=== PATIENT | female | born 1955 | race African-American/Black ===

== ENCOUNTER 2017-01-09 21:28 | Inpatient (IN) | payer OTHER ==
--- NOTE | ~2017-01-09 | HP ---
History And Physical [id number] [place]. [address] NAME: GALLITO LI : 59 STATUS : ADM IN [facility]#: [id number] AGE: 61 ADM/REG DATE : 01/10/17 MR#: [id number] REPORT SERV DATE: 01/10/17 DICTATED BY: DORI RUSS DATE: 01/10/17 REPORT STATUS : Draft TRANSCRIBED BY: MODL DATE: 01/10/17 DATE OF ADMISSION: 01/10/2017 TIME: 0200 hours. LOCATION: Seen in ER bed 11. HISTORY OF PRESENT ILLNESS: Ms. Li is a 61-year-old -[place] female with a history of hypertension, who says that she came in because of a headache and elevated blood pressure. She reports on 12/15/2016, she saw her physician, who gave her an albuterol-type inhaler and since that time, her blood pressure has gotten out of control. Normally, she does take antihypertensive medications and has done so since 1999. Tonight, she required Cardene for control of hypertension when her usual medications did not sustain it. She had no significant chest pain with this. She did have a mild headache. She noted no epistaxis and no hematuria. Her blood pressure had not been this high ever previously. She had a nuclear cardiac stress test last year, which she reports as normal. PAST MEDICAL HISTORY: Usual childhood diseases; status post cholecystectomy; history of Graves' disease, for which she has been treated for several years, she is on methimazole; history of kidney stones, she now has one on the right, a large one had to be surgically removed from the left several years ago. ALLERGIES: SULFUR. MEDICATIONS: Her medications are numerous and include 81 mg chewable aspirin, Wellbutrin XL 300 mg daily, Catapres 0.1 mg 3 times a day, diazepam 5 mg p.o. daily, Neurontin 300 mg p.o. three times a day, Tapazole 5 mg p.o. daily, Lopressor 100 mg twice a day p.o., Remeron 30 mg p.o. at bedtime, Protonix 40, simvastatin 40, and Zanaflex 4 mg p.o. daily. REVIEW OF SYSTEMS: GASTROINTESTINAL: Inflammatory bowel. GENITOURINARY: Negative. NEUROLOGIC: Negative. ENDOCRINE: Positive for Graves' disease. MUSCULOSKELETAL: Negative. HEMATOLOGY/ONCOLOGY: Negative. All other systems reviewed and negative. FAMILY HISTORY: Noncontributory. SOCIAL HISTORY: Nonsmoker. Nondrinker. PHYSICAL EXAMINATION: VITAL SIGNS: Blood pressure when she came in was 213/120, pulse was 90, saturation was 96%. GENERAL: The patient is awake, alert, oriented, in no acute distress at this time. History And Physical [address] [address] NAME: GALLITO LI : 59 STATUS : ADM IN PAT#: [id number] AGE: 61 ADM/REG DATE : 01/10/17 MR#: [id number] REPORT SERV DATE: 01/10/17 DICTATED BY: DORI RUSS DATE: 01/10/17 REPORT STATUS : Draft TRANSCRIBED BY: FANY DATE: 01/10/17 HEENT: Head is normocephalic. Sclerae and conjunctivae are clear. Of note, she has glaucoma. NECK: Supple. Good upstroke. No bruits. CHEST: Clear to auscultation and percussion. No wheezing or rhonchi. CARDIAC: S1 and S2, with S4. No murmurs or gallops. ABDOMEN: Obese, nontender. No masses or organomegaly. EXTREMITIES: No clubbing or cyanosis. Pulses palpable. Slight edema. NEUROLOGIC: Cranial nerves 2 through 12 are intact. Deep tendon reflexes are normal. LABORATORY DATA: Chest x-ray is clear. Sodium 143, potassium 3.3, chloride 109, CO2 of 24, BUN 9, creatinine 0.79, glucose 110, calcium 9.1, magnesium 1.8. Troponin less than 0.02. T4 total 6.2, TSH 5.38 slightly elevated, T3 free 3.09. BNP 96.9. CBC: H and H is 14.5 and 42.8, white count 97891, platelets 320,000. CT of brain is negative. Urinalysis: She has 100 mg of protein and she has rbc's of 182, minimal white cells, a few hyaline casts. The EKG shows LVH, normal sinus rhythm. IMPRESSION: 1. Accelerated hypertension. 2. History of renal stones. 3. Hematuria and proteinuria. 4. History of renal stones. PLAN: We will continue Cardene and oral medications. We will ask Nephrology to see for possible glomerulonephritis. We will get renal artery ultrasounds, renal artery Dopplers, ultrasound of kidneys. She may need a 24-hour urine for catecholamines, VMA, 5-HIAA, and metanephrine. RP/MODL Dori Russ M.D. / [id number] CC: Naga Mercado M.D.
--- NOTE | ~2017-01-09 | CN ---
Consultation Report [facility] [address] [place]. [address] NAME: GALLITO LI : 59 STATUS : ADM IN PAT#: [id number] AGE: 61 ADM/REG DATE : 01/10/17 MR#: [id number] REPORT SERV DATE: 01/12/17 DICTATED BY: ALFREDO MAYES DATE: 01/10/17 REPORT STATUS : Draft TRANSCRIBED BY: MODL DATE: 01/10/17 NEPHROLOGY CONSULT NOTE DATE OF CONSULTATION: 01/10/2017 HISTORY OF PRESENT ILLNESS: Ms Li is a 61-year-old black female, admitted to the hospital for uncontrolled hypertension. She has been having some headaches, went to the emergency room, and was admitted for problems. I consulted mainly for proteinuria and hematuria, concern about possible glomerulonephritis. No history of kidney disease in the past except for nephrolithiasis. Has had stones extracted as well as passed several stones, and repeated x-rays in the past have shown kidney stones bilaterally. She has a longstanding history of hypertension, Graves disease, anxiety/panic attacks, and pancreatitis x2. ALLERGIES: SHE IS ALLERGIC TO SULFA. SOCIAL HISTORY: No alcohol. Stopped smoking many years ago. with one child. MEDICATIONS: Her medications at home were aspirin, Wellbutrin, Catapres, Valium, Neurontin, Tapazole, Lopressor, Remeron, Protonix, Zocor, and Zanaflex. She admits to not taking her clonidine very often sometimes once a day, sometimes forgets it, especially since her has been ill and been at [facility], as well as skipping other medications also. PHYSICAL EXAMINATION: VITAL SIGNS: Shows a blood pressure of 125/67, heart rate of 89, respirations 25, temperature 99.6. GENERAL: Alert and oriented x3. No acute distress. Very verbal and apologetic about not taking her blood pressure medications according as recommended by Dr. Walker. HEENT: Unremarkable. LUNGS: Clear. CARDIAC: Without murmurs, gallops, or rubs. ABDOMEN: Soft, benign. Bowel sounds present. No bruits. EXTREMITIES: No edema. NEUROLOGIC: Nonfocal neurological exam. SKIN: No skin rash or joint abnormalities. LYMPHATICS: No lymphadenopathy appreciated. LABORATORY DATA: Shows a white count of 13,000, hemoglobin 15, hematocrit 46, platelet count 293,000. Sodium 140, potassium 3.8, chloride 107, CO2 22 with a BUN 8 and creatinine 0.69. Urinalysis shows hematuria and proteinuria in a contaminated specimen. CT scan and ultrasounds in the past have shown normal size kidneys with kidney stones bilaterally consistently. Ultrasound today pending. ASSESSMENT: 1. Hypertension, malignant last p.m. but maybe clonidine withdrawal syndrome as she has Consultation Report [address] [place]. [address] NAME: GALLITO LI : 59 STATUS : ADM IN PAT#: [id number] AGE: 61 ADM/REG DATE : 01/10/17 MR#: [id number] REPORT SERV DATE: 01/12/17 DICTATED BY: ALFREDO MAYES DATE: 01/10/17 REPORT STATUS : Draft TRANSCRIBED BY: FANY DATE: 01/10/17 not been taking her clonidine regularly at all lately. She has been taking metoprolol only, concern about glomerulonephritis, certainly a possibility, this can cause hematuria, proteinuria, and acute exacerbation hypertension but will need to follow her for awhile and make sure, I will check serology. 2. Hematuria, suspect secondary to uncontrolled hypertension and nephrolithiasis. Serology pending. 3. Nephrolithiasis, chronic and recurrent. 4. New diagnosis of Graves disease, poorly controlled. Again, forgets to take her medications regularly. 5. Anxiety, depression, and panic attacks in the past, on treatment. 6. History of hyperlipidemia on statins. 7. History of nephrolithiasis, followed by Urology. PLAN: Serology ordered. We will follow in the office after discharge. Blood pressure is already much better controlled with oral agents. We would like to get her off clonidine if at all possible as it would prevent the clonidine withdrawal syndrome if she were to forget to take her medications. NAYLA/FANY Alfredo Mayes M.D. / [id number] CC: Naga Mercado M.D.
--- NOTE | ~2017-01-09 | PUL ---
[address] [place]. [address] NAME: GALLITO LI : 59 STATUS : ADM IN PAT#: [id number] AGE: 61 ADM/REG DATE : 01/10/17 MR#: [id number] REPORT SERV DATE: 01/14/17 DICTATED BY: NICHOLAS JEONG DATE: 01/14/17 REPORT STATUS : Draft TRANSCRIBED BY: MODL DATE: 01/14/17 PULMONARY FUNCTION TEST STUDY: Nocturnal oximetry study. DESCRIPTION: Nocturnal oximetry study performed on room air on 01/11/2017 starting at 11:14 p.m. and ending on 01/12/2017 at 05:17 a.m. Total recording time 6 hours, 3 minutes, and 20 seconds. Average heart rate 78 with a low of 72 and a high of 91. Average O2 saturation is 92.9% with a low of 69%. Time below 88% was 19 minutes and 16 seconds and oxygen desaturation index was 5.1. IMPRESSION: This is a good quality oximetry study on room air showing significant oxygen desaturation to a low of 69% and significant time below 88%, which would qualify her for oxygen. Rule out any secondary causes that may need to be treated. If sleep apnea is a concern, then outpatient sleep study can be done. NINA/FANY Nicholas Jeong DO / [id number] CC: MD Hipolito Moura M.D.
--- NOTE | ~2017-01-09 | DS ---
Discharge Summary [id number] [place]. [address] NAME: GALLITO LI : 59 STATUS : DIS IN PAT#: [id number] AGE: 61 ADM/REG DATE : 01/10/17 MR#: [id number] REPORT SERV DATE: 01/15/17 DICTATED BY: OLEG LOPEZ DATE: 01/14/17 REPORT STATUS : Draft TRANSCRIBED BY: MODL DATE: 01/14/17 ADMISSION DATE: 01/10/2017 DISCHARGE DATE: 01/14/2017 DISCHARGE DIAGNOSES: Hypertensive urgency, malignant, with hypokalemia; Graves disease, likely obstructive sleep apnea. PERTINENT LABORATORY DATA: Renin-aldosterone noted after discharge ratio 0.6, considered within normal limits. Direct renin was 12.7, aldosterone 7.9. Pulmonary nocturnal oximetry, desated to 69%. ANCA less than 0 to 120, myeloperoxidase antibody less than 0.02. Proteinase 3 antibody less than 0.2. Urine culture, negative metanephrines. Final report 5 HIAA still pending. Will need to be followed at discharge. Hepatitis profile and HIV negative. KRISTINA titer less than 1:40. Complement level C3 at 176, C4 at 25.4, mildly elevated C3. Hemoglobin A1c 6.0. Renal ultrasound, nonobstructing right nephrolithiasis. Small cyst, lower pole of left kidney. Otherwise, normal size, contour, and cortical thickness of both kidneys. Cortisol 15.9. BNP 96.9. DISCHARGE MEDICATIONS: Amlodipine 5 mg one tab p.o. daily, aspirin 81 mg one tab p.o. b.i.d., Wellbutrin 300 mg one tab p.o. daily, Valium 5 mg one tab p.o. b.i.d. scheduled home dose, docusate 100 mg one tab p.o. b.i.d., Neurontin 300 mg one tab p.o. q.8 hours, methimazole 5 mg one tab p.o. b.i.d., metoprolol 100 mg one tab p.o. b.i.d., Protonix 40 mg one tab p.o. daily, simvastatin 40 mg one tab p.o. daily, Remeron 30 mg one tab p.o. at bedtime home dose as needed for sleep, Zanaflex 4 mg one tab p.o. every eight hours for muscle spasms and tension p.r.n., clonidine 0.3 mg patch q.7 days, Percocet 5/325 #10 b.i.d. p.r.n. for kidney stone pain. HOSPITAL COURSE: Please see H and P for complete details. HISTORY OF PRESENT ILLNESS: Briefly, Ms. Li is a 61-year-old female, who comes in with headache and elevated blood pressures. The patient reports that she typically has high blood pressures; however, has not been taking care of herself very well, as her has been having extensive hospitalizations after MS flare and inpatient admission and subsequent rehab that required prolonged stay. The patient has been having difficulty with her blood pressure and was insisted to coming to the hospital by . The patient required initially Cardene drip, but it was able to be converted to p.o. and clonidine patch with very good blood pressure control. The patient was able to tolerate this and was monitored for various stages of orthostasis. Electrolytes were optimized. The patient was hypokalemic on admission with potassium 3.1. The patient was able to tolerate p.o. and after review, the patient does have slight nocturnal dyspnea and was recommended for outpatient sleep study at the time of discharge for further evaluation as possible additionally secondary component for hypertension. Additional workup including metanephrine workup is still pending at the time of discharge and will need to be followed up once available with PCP. All questions were answered with the patient and family at bedside. Discharge Summary [address] [address] NAME: GALLITO LI : 59 STATUS : DIS IN PAT#: [id number] AGE: 61 ADM/REG DATE : 01/10/17 MR#: [id number] REPORT SERV DATE: 01/15/17 DICTATED BY: OLEG LOPEZ DATE: 01/14/17 REPORT STATUS : Draft TRANSCRIBED BY: FANY DATE: 01/14/17 DDN/FANY Oleg Lopez MD / [id number] CC: MD Hipolito Moura M.D.
[2017-01-09 19:09] LABS: BASOPHILS 0.5 %; BASOPHILS ABSOLUTE 0.05 10/3/uL (0.0-0.16); EOSINOPHILS 1.5 %; EOSINOPHILS ABSOLUTE 0.15 10/3/uL (0.0-0.53); HEMATOCRIT 42.8 % (36.0-48.0); HEMOGLOBIN 14.5 g/dL (12.0-16.0); IMMATURE GRANULOCYTES 0.4 %; IMMATURE GRANULOCYTES ABSOLUTE 0.04 10/3/uL (0.0-0.11); LYMPHOCYTES 29.7 %; LYMPHOCYTES ABSOLUTE 2.96 10/3/uL (0.67-4.30); MEAN CORPUS HGB CONC 33.9 g/dL (32.0-36.0); MEAN CORPUSCULAR HEMOGLOB 32.6 pg (26.0-34.0); MEAN PLATELET VOLUME 9.2 fL (9.2-13.0); MONOCYTES 6.7 %; MONOCYTES ABSOLUTE 0.67 10/3/uL (0.21-1.20); NEUTROPHILS 61.2 %; PLATELET COUNT 320 10/3/uL (150-400); RBC DISTRIBUTION WIDTH 13.8 % (12.0-16.0); RED CELL COUNT 4.45 10/6/uL (4.0-5.6)
[2017-01-09 19:10] LABS: MANUAL DIFF NO %; MEAN CORPUSCULAR VOLUME 96.2 fL (80-100)
[2017-01-09 19:17] LABS: INTERNATIONAL NORMAL RATI 1.1 UNITS (-); PROTIME (NOT ORD) 14.1 SEC (12.0-14.5)
[2017-01-09 19:24] LABS: CALCIUM, SERUM 9.1 MG/DL (8.5-10.4); CHEST PAIN PROFILE TAT 0 Hrs 19 Mins; CHLORIDE, SERUM 109 MMOL/L (96-112); CO2 (CARBON DIOXIDE) 24 MMOL/L (24-34); CREATININE 0.79 MG/DL (0.55-1.02); GFR AFRICAN AMERICAN 95 ML/MIN (>=60); GFR NON AFRICAN AMERICAN 82 ML/MIN (>=60); GLUCOSE, SERUM 110 MG/DL (60-99); POTASSIUM, SERUM 3.3 MMOL/L (3.5-5.3); SODIUM, SERUM 143 MMOL/L (135-148); TROPONIN I <0.02 NG/ML (<0.05)
[2017-01-09 19:25] LABS: BUN (BLOOD UREA NITROGEN) 9 MG/DL (6-23)
[~2017-01-09 21:28] MED LIST: CAT1 PO; CIP5 PO; COREG3 PO; CYANO1000T PO; HALF81 PO; LOP100 PO; LOP50 PO; LOPID6 PO; LUMIGAN OPH; MACRO50B PO; METHIMAZOLE5 MG PO; MICROZIDE PO; NORV10 PO; PROTONIX PO; PROTONIXIV IV; T PO; V2 PO; ZANAFLEX 4 MG TA4 MG PO; ZOCOR40 PO; ZOL100 PO
[2017-01-10 00:39] LABS: ASCORBIC ACID (UR NOT ORDER) NEG (NEG); BILIRUBIN, URINE NEGATIVE (NEG); ER URINALYSIS TAT 0 Hrs 00 Mins; KETONE, URINE NEGATIVE (NEG); LEUKOCYTE ESTERASE(NOT OR TRACE (NEG); NITRITE (URINE) NEG (NEG); WBC (NOT ORDERED) (RFLEX) 4 (0-5)
[2017-01-10 00:47] LABS: T4 (THYROXINE) TOTAL 6.2 MCG/DL (4.5-12.0)
[2017-01-10] MEDS ORDERED: WELLXL300 PO (01:27)
[2017-01-10] MEDS ORDERED: V5 PO (01:28)
[2017-01-10] MEDS ORDERED: NEUR300 PO (01:28)
[2017-01-10] MEDS ORDERED: CAT1 PO ×2 (01:28→01:29)
[2017-01-10] MEDS ORDERED: TAPAZOLE5 MG PO (01:29)
[2017-01-10] MEDS ORDERED: LOP100 PO (01:30)
[2017-01-10] MEDS ORDERED: REMERON30 MG PO (01:30)
[2017-01-10] MEDS ORDERED: ZANAFLEX 4 MG TA4 MG PO (01:30)
[2017-01-10] MEDS ORDERED: ZOCOR40 PO (01:31)
[2017-01-10] MEDS ORDERED: PROTONIX PO (01:31)
[2017-01-10] MEDS ORDERED: ASAB PO (01:33)
[2017-01-10 04:21] LABS: BASOPHILS 0.4 %; BASOPHILS ABSOLUTE 0.05 10/3/uL (0.0-0.16); EOSINOPHILS 1.5 %; HEMATOCRIT 46.7 % (36.0-48.0); HEMOGLOBIN 15.7 g/dL (12.0-16.0); IMMATURE GRANULOCYTES 0.4 %; IMMATURE GRANULOCYTES ABSOLUTE 0.05 10/3/uL (0.0-0.11); LYMPHOCYTES 23.3 %; LYMPHOCYTES ABSOLUTE 3.11 10/3/uL (0.67-4.30); MEAN CORPUS HGB CONC 33.6 g/dL (32.0-36.0); MEAN CORPUSCULAR HEMOGLOB 32.8 pg (26.0-34.0); MEAN CORPUSCULAR VOLUME 97.5 fL (80-100); MEAN PLATELET VOLUME 9.9 fL (9.2-13.0); MONOCYTES 6.5 %; MONOCYTES ABSOLUTE 0.87 10/3/uL (0.21-1.20); NEUTROPHILS 67.9 %; NEUTROPHILS ABSOLUTE 9.08 10/3/uL (2.02-8.40); PLATELET COUNT 293 10/3/uL (150-400); RBC DISTRIBUTION WIDTH 14.1 % (12.0-16.0); RED CELL COUNT 4.79 10/6/uL (4.0-5.6); WHITE BLOOD CELLS 13.4 10/3/uL (4.5-10.5)
[2017-01-10 04:22] LABS: MANUAL DIFF NO %
[2017-01-10 04:39] LABS: BUN (BLOOD UREA NITROGEN) 8 MG/DL (6-23); CALCIUM, SERUM 9.5 MG/DL (8.5-10.4); CHLORIDE, SERUM 107 MMOL/L (96-112); CO2 (CARBON DIOXIDE) 22 MMOL/L (24-34); CREATININE 0.69 MG/DL (0.55-1.02); GFR AFRICAN AMERICAN 110 ML/MIN (>=60); GFR NON AFRICAN AMERICAN 95 ML/MIN (>=60); GLUCOSE, SERUM 109 MG/DL (60-99); PHOSPHORUS, SERUM 2.9 MG/DL (2.5-4.5); SODIUM, SERUM 140 MMOL/L (135-148)
[2017-01-10 04:40] LABS: POTASSIUM, SERUM 3.1 MMOL/L (3.5-5.3)
[2017-01-10 08:16] LABS: POTASSIUM, SERUM 3.8 MMOL/L (3.5-5.3)
[2017-01-10 09:33] LABS: FREE T4 0.96 NG/DL (0.76-1.46)
[2017-01-10 16:52] LABS: COMPLEMENT C4 25.4 MG/DL (16-47)
[2017-01-11 04:41] LABS: ALBUMIN 3.8 G/DL (3.5-5.0); ALKALINE PHOSPHATASE 113 U/L (45-117); CALCIUM, SERUM 8.9 MG/DL (8.5-10.4); CHLORIDE, SERUM 111 MMOL/L (96-112); CO2 (CARBON DIOXIDE) 25 MMOL/L (24-34); CREATININE 0.89 MG/DL (0.55-1.02); GFR AFRICAN AMERICAN 82 ML/MIN (>=60); GFR NON AFRICAN AMERICAN 71 ML/MIN (>=60); GLUCOSE, SERUM 121 MG/DL (60-99); PHOSPHORUS, SERUM 3.7 MG/DL (2.5-4.5); POTASSIUM, SERUM 3.5 MMOL/L (3.5-5.3); SGPT(ALT) 23 U/L (5-65); SODIUM, SERUM 146 MMOL/L (135-148); TOTAL BILIRUBIN 0.4 MG/DL (0-1.2); TOTAL PROTEIN 7.9 G/DL (6.0-8.5)
[2017-01-11 04:43] LABS: A/G RATIO 0.9 (0.7-1.9); BUN (BLOOD UREA NITROGEN) 13 MG/DL (6-23); GLOBULIN 4.1 G/DL (2.5-4.1); SGOT(AST) 22 U/L (5-40)
[2017-01-11 12:46] LABS: ASCORBIC ACID (UR NOT ORDER) NEG (NEG); BILIRUBIN, URINE NEGATIVE (NEG); KETONE, URINE NEGATIVE (NEG); LEUKOCYTE ESTERASE(NOT OR SMALL (NEG); WBC (NOT ORDERED) (RFLEX) 6 (0-5)
[2017-01-12 07:39] LABS: BUN (BLOOD UREA NITROGEN) 12 MG/DL (6-23); CALCIUM, SERUM 9.3 MG/DL (8.5-10.4); CHLORIDE, SERUM 110 MMOL/L (96-112); CREATININE 0.66 MG/DL (0.55-1.02); GFR AFRICAN AMERICAN 112 ML/MIN (>=60); GFR NON AFRICAN AMERICAN 97 ML/MIN (>=60); GLUCOSE, SERUM 97 MG/DL (60-99); POTASSIUM, SERUM 4.2 MMOL/L (3.5-5.3); SODIUM, SERUM 141 MMOL/L (135-148)
[2017-01-12 07:40] LABS: CO2 (CARBON DIOXIDE) 20 MMOL/L (24-34)
[2017-01-12 09:50] LABS: ANA TITER <1:40 TITER
[2017-01-12 10:26] LABS: HEPATITIS B SURFACE ANTIGEN NON-REACTIVE (NON-REACT)
[2017-01-12 10:27] LABS: HEPATITIS C ANTIBODY NON-REACTIVE (NON-REACT)
[2017-01-12 10:28] LABS: HEPATITIS B CORE AB IGM NON-REACTIVE (NON-REAC); HIV COMBO NON-REACTIVE (NON REAC)
[2017-01-12 10:29] LABS: HEP A ANTIBODY IGM NON-REACTIVE (NON-REACT)
[2017-01-13 05:06] LABS: BASOPHILS 0.5 %; BASOPHILS ABSOLUTE 0.04 10/3/uL (0.0-0.16); EOSINOPHILS 2.6 %; EOSINOPHILS ABSOLUTE 0.23 10/3/uL (0.0-0.53); HEMOGLOBIN 13.9 g/dL (12.0-16.0); IMMATURE GRANULOCYTES 0.3 %; IMMATURE GRANULOCYTES ABSOLUTE 0.03 10/3/uL (0.0-0.11); LYMPHOCYTES 33.4 %; LYMPHOCYTES ABSOLUTE 2.91 10/3/uL (0.67-4.30); MEAN CORPUS HGB CONC 32.3 g/dL (32.0-36.0); MEAN CORPUSCULAR HEMOGLOB 32.4 pg (26.0-34.0); MEAN CORPUSCULAR VOLUME 100.2 fL (80-100); MONOCYTES 7.6 %; MONOCYTES ABSOLUTE 0.66 10/3/uL (0.21-1.20); NEUTROPHILS 55.6 %; NEUTROPHILS ABSOLUTE 4.85 10/3/uL (2.02-8.40); PLATELET COUNT 328 10/3/uL (150-400); RBC DISTRIBUTION WIDTH 14.3 % (12.0-16.0); RED CELL COUNT 4.29 10/6/uL (4.0-5.6); WHITE BLOOD CELLS 8.7 10/3/uL (4.5-10.5)
[2017-01-13 05:08] LABS: MANUAL DIFF NO %
[2017-01-13 05:17] LABS: ALBUMIN 3.6 G/DL (3.5-5.0); BUN (BLOOD UREA NITROGEN) 14 MG/DL (6-23); CALCIUM, SERUM 9.4 MG/DL (8.5-10.4); CHLORIDE, SERUM 110 MMOL/L (96-112); CO2 (CARBON DIOXIDE) 24 MMOL/L (24-34); CREATININE 0.67 MG/DL (0.55-1.02); GFR AFRICAN AMERICAN 112 ML/MIN (>=60); GFR NON AFRICAN AMERICAN 96 ML/MIN (>=60); GLUCOSE, SERUM 124 MG/DL (60-99); PHOSPHORUS, SERUM 4.1 MG/DL (2.5-4.5); SODIUM, SERUM 144 MMOL/L (135-148)
[2017-01-13 22:18] LABS: ANCA <1:20 (()); MYELOPEROXIDASE ANTIBODY <0.2 AI (<1.0); PROTEINASE 3 ANTIBODY <0.2 AI (<1.0)
[2017-01-14] MEDS ORDERED: NORV5 PO (12:25)
[2017-01-14] MEDS ORDERED: CATAPRES3 TOP (12:27)
[2017-01-14 21:09] LABS: ALDOSTERONE 7.9 ng/dL (<39.2); ALDOSTERONE/RENIN RAT 0.6 ratio (0.1-3.7)
[2017-01-15 16:08] LABS: 5HIAA 1.2 mg/L (())
[2017-01-16 13:47] LABS: METANEPHRINE [CALC] 0.113 mg/24h (0.052-0.341); NORMETANEPHRINE [CALC] 0.205 mg/24h (0.088-0.444); TOTAL METANEPHRINES [CALC] 0.319 mg/24h (0.140-0.785)
== END 2017-01-14 16:00 | disposition home or self-care (01) | DRG 305 ==
LOC: ER 21:28 → CCU 01-10 01:08 → 5NO 01-12 19:34
PROVIDERS: Emergency Medicine; Internal Medicine Critical Care Medicine; Internal Medicine Nephrology
DX: I16.0 Hypertensive urgency (principal); F32.9 Major depressive disorder, single episode, unspecified; T46.5X6A Underdosing of other antihypertensive drugs, initial encounter; R31.9 Hematuria, unspecified; Z87.442 Personal history of urinary calculi; Z88.2 Allergy status to sulfonamides; Z79.82 Long term (current) use of aspirin; E78.5 Hyperlipidemia, unspecified; N20.0 Calculus of kidney; E05.00 Thyrotoxicosis with diffuse goiter without thyrotoxic crisis or storm
CPT/HCPCS: 70450; 71020; 76775; 80048; 80053; 80069; 80074; 81001; 81050; 82088; 82533; 83036; 83497; 83516; 83516-59; 83735; 83835; 83880; 84100; 84132; 84244; 84436; 84439; 84443; 84481; 84484; 85025; 85610; 85730; 86039; 86160; 86255; 87086; 87389; 87641; 93005; 94762; 96374; 96375; 96376; 97161-GP; 99291; A9270-GY; J0360; J2405

== ENCOUNTER 2017-02-08 12:45 | Emergency (ER) | payer MEDICARE, OTHER ==
[~2017-02-08 12:45] MED LIST changes: +ASAB PO; +CATAPRES3 TOP; +NEUR300 PO; +NORV5 PO; +REMERON30 MG PO; +TAPAZOLE5 MG PO; +V5 PO; +WELLXL300 PO
[2017-02-08 13:35] LABS: CHEST PAIN PROFILE TAT 0 Hrs 19 Mins; CHLORIDE, SERUM 110 MMOL/L (96-112); CO2 (CARBON DIOXIDE) 26 MMOL/L (24-34); CREATININE 0.71 MG/DL (0.55-1.02); GFR AFRICAN AMERICAN 108 ML/MIN (>=60); GFR NON AFRICAN AMERICAN 93 ML/MIN (>=60); SODIUM, SERUM 144 MMOL/L (135-148); TROPONIN I <0.02 NG/ML (<0.05)
[2017-02-08 13:38] LABS: BUN (BLOOD UREA NITROGEN) 6 MG/DL (6-23); GLUCOSE, SERUM 89 MG/DL (60-99)
[2017-02-08 13:40] LABS: POTASSIUM, SERUM 4.1 MMOL/L (3.5-5.3)
[2017-02-08 14:42] LABS: ASCORBIC ACID (UR NOT ORDER) 40 (NEG); BILIRUBIN, URINE NEGATIVE (NEG); KETONE, URINE NEGATIVE (NEG); LEUKOCYTE ESTERASE(NOT OR NEG (NEG); NITRITE (URINE) NEG (NEG); WBC (NOT ORDERED) (RFLEX) 2 (0-5)
[2017-02-08 16:57] LABS: BASOPHILS 0.4 %; BASOPHILS ABSOLUTE 0.03 10/3/uL (0.0-0.16); EOSINOPHILS 2.3 %; EOSINOPHILS ABSOLUTE 0.16 10/3/uL (0.0-0.53); HEMATOCRIT 38.2 % (36.0-48.0); HEMOGLOBIN 12.7 g/dL (12.0-16.0); IMMATURE GRANULOCYTES 0.6 %; IMMATURE GRANULOCYTES ABSOLUTE 0.04 10/3/uL (0.0-0.11); LYMPHOCYTES 37.4 %; LYMPHOCYTES ABSOLUTE 2.55 10/3/uL (0.67-4.30); MANUAL DIFF NO %; MEAN CORPUS HGB CONC 33.2 g/dL (32.0-36.0); MEAN CORPUSCULAR HEMOGLOB 32.3 pg (26.0-34.0); MEAN CORPUSCULAR VOLUME 97.2 fL (80-100); MEAN PLATELET VOLUME 10.4 fL (9.2-13.0); MONOCYTES 7.2 %; MONOCYTES ABSOLUTE 0.49 10/3/uL (0.21-1.20); NEUTROPHILS 52.1 %; NEUTROPHILS ABSOLUTE 3.55 10/3/uL (2.02-8.40); RBC DISTRIBUTION WIDTH 14.1 % (12.0-16.0); RED CELL COUNT 3.93 10/6/uL (4.0-5.6); WHITE BLOOD CELLS 6.8 10/3/uL (4.5-10.5)
[2017-02-08 17:54] LABS: PLATELET COUNT 209 10/3/uL (150-400)
[2017-02-08 18:29] LABS: PLATELET ESTIMATE ADQ (ADEQUATE); PLATELET SATELLITISM RARE
[2017-02-08 18:31] LABS: RBC MORPHOLOGY NORM (NORMAL)
== END 2017-02-08 21:06 | disposition home or self-care (01) ==
LOC: ER 12:45
PROVIDERS: Nurse Practitioner Family
DX: N20.0 Calculus of kidney (principal); B02.9 Zoster without complications; K58.9 Irritable bowel syndrome, unspecified; K21.9 Gastro-esophageal reflux disease without esophagitis; F32.9 Major depressive disorder, single episode, unspecified; Z88.2 Allergy status to sulfonamides; Z79.82 Long term (current) use of aspirin; Z79.899 Other long term (current) drug therapy
CPT/HCPCS: 71010; 80048; 81001; 83690; 83735; 84484; 85025; 85379; 85610; 85730; 96374; 96375; 99284; A9270-GY; J2405